=== PATIENT | female | born 1970 | race Caucasian/White ===

== ENCOUNTER 2016-08-24 22:34 | Observation (INO) | payer OTHER ==
[2016-08-24] MEDS ORDERED: ONDANSETRON 4 MG/2 ML VIAL IVP STA (22:55)
[2016-08-24] MEDS ORDERED: MORPHINE SULFATE 4 MG/ML SYRINGE IVP STA (23:12)
[2016-08-24] MEDS ORDERED: ASPIRIN 81 MG CHEW PO STA (23:13)
--- NOTE | 2016-08-24 23:15 | ED ---
Chest Pain HPI - General Chief Complaint: Chest Pain Stated Complaint: chest pain Time Seen by Provider: 08/24/16 22:50 Source: patient Mode of arrival: wheelchair Limitations: no limitations - History of Present Illness Initial Comments: The patient is a 46-year-old female who presents to ED with a chief complaint of left-sided chest pain. Patient states the pain has been present intermittently over the course the past three days. Patient states the pain is achy in nature. She states that it is associated with nausea and vomiting, particularly when she lays flat on her back. The patient notes that she does not have any shortness of breath associated with this pain. She does also notice pain in the lower cervical region of her neck. Patient does not have any neck stiffness. She denies any fevers or chills. Patient denies any history of cardiac disease. She denies any cardiac risk factors such as hypertension, hyperlipidemia, diabetes. The patient's notes abdominal pain in the epigastric region, though she states that she believes that this is secondary to the fact that she's had multiple episodes of emesis since her symptoms began. Patient denies any rash. The patient states that she is concerned that her pain may be groin worse. She notes that it does somewhat improve when she takes ibuprofen. She denies any history of PE or DVT. - Related Data Home Medications Medication Instructions Recorded Confirmed HYDROcodone/APAP 10-325MG [[place] 1 tab PO QID PRN 01/20/14 08/24/16 10] Divalproex ER [Depakote ER] 1,500 mg PO QAM 01/09/15 08/24/16 Pregabalin [Lyrica] 150 mg PO HS 01/09/15 08/24/16 Ibuprofen [Ibuprofen] 600 mg PO Q6H PRN 02/06/15 08/24/16 LORazepam [Ativan] 1 mg PO QID PRN 08/24/16 08/24/16 SUMAtriptan SUCCINATE [Imitrex] 50 mg PO BID PRN 08/24/16 08/24/16 Allergies Allergy/AdvReac Type Severity Reaction Status Date / Time cyclobenzaprine HCl Allergy Swelling Verified 08/24/16 23:18 [From Flexeril] dimenhydrinate Allergy Swelling Verified 08/24/16 23:18 diphenhydramine HCl Allergy Swelling Verified 08/24/16 23:18 [From Benadryl] doxylamine Allergy Swelling Verified 08/24/16 23:18 [From Unisom (doxylamine)] loratadine [From Claritin] Allergy Swelling Verified 08/24/16 23:18 Review of Systems ROS Statement: Those systems with pertinent positive or pertinent negative responses have been documented in the HPI. ROS Other: All systems not noted in ROS Statement are negative. Constitutional: Denies: fever, chills, weakness ENT: Denies: throat pain Respiratory: Denies: cough, dyspnea, wheezes, hemoptysis, stridor Cardiovascular: Reports: chest pain (left upper). Denies: palpitations, dyspnea on exertion Endocrine: Denies: fatigue Gastrointestinal: Reports: abdominal pain (epigastric), nausea, vomiting. Denies: diarrhea, constipation, hematemesis Genitourinary: Denies: urgency, dysuria, frequency, hematuria Skin: Denies: rash, lesions Neurological: Denies: headache, weakness, numbness Psychiatric: Reports: anxiety. Denies: depression EKG Findings - EKG Comments: EKG Findings:: EKG demonstrates NSR with a rate of 82. There are no concerning ST-T changes. The UT and QRS intervals are within normal limits. Past Medical History Past Medical History: Cancer, Musculoskeletal Disorder, Seizure Disorder Additional Past Medical History / Comment(s): LAST SEIZURE OVER 2 YRS AGO. Chronic back pain, hx cervical cancer. migraine headaches History of Any Multi-Drug Resistant Organisms: None Reported Past Surgical History: Section, Hysterectomy Additional Past Surgical History / Comment(s): PAIN CLINIC INJECTIONS Past Anesthesia/Blood Transfusion Reactions: No Reported Reaction Past Psychological History: Anxiety Smoking Status: Current every day smoker Past Alcohol Use History: Occasional Additional Past Alcohol Use History / Comment(s): STARTED SMOKING AT AGE 15 SMOKES LESS THAN 1/2PPD Past Drug Use History: None Reported - Past Family History Mother Family Medical History: No Reported History General Exam Limitations: no limitations General appearance: alert, anxious Head exam: Present: atraumatic, normocephalic Eye exam: Present: normal appearance, PERRL, EOMI ENT exam: Present: normal exam, mucous membranes dry Neck exam: Present: normal inspection, full ROM Respiratory exam: Present: normal lung sounds bilaterally, chest wall tenderness (mild tenderness over the left upper chest). Absent: respiratory distress, wheezes, rales, rhonchi Cardiovascular Exam: Present: regular rate, normal rhythm, normal heart sounds GI/Abdominal exam: Present: soft, tenderness (mild tenderness in the epigastric region). Absent: distended, guarding, rebound, rigid Extremities exam: Present: normal inspection, full ROM. Absent: tenderness Back exam: Present: normal inspection, full ROM. Absent: tenderness Neurological exam: Present: alert, oriented X3 Psychiatric exam: Present: normal affect, anxious Skin exam: Present: warm, dry, intact Course Vital Signs 08/24/16 08/24/16 08/25/16 22:37 23:52 00:49 Temperature 98.8 F 97.5 F L Pulse Rate 80 71 77 Respiratory 20 18 18 Rate Blood Pressure 101/71 108/64 102/69 O2 Sat by Pulse 98 100 100 Oximetry Chest Pain MDM - MDM Patient is a 46-year-old female who presents to the ED with a chief complaint of chest pain. Patient states that her chest pain has been present intermittently over the course the past three days. It is associated with sensation of nausea. Patient notes that she's never had any cardiac disease in the past. She has had no cardiac risk factors aside from cigarette use. No history of hypertension, hyperlipidemia or diabetes. Patient denies any history of COPD. Check d-dimer. Troponin. EKG demonstrates no evidence of acute ischemia. Chest x-ray. Provide patient with morphine for pain control. Check lipases well given epigastric pain. Zofran for nausea. 12:48 AM Patient states that her pain has resolved after receiving Morphine. She notes that now she has a headache and is feeling anxious. The patient and her family have been updated of overall findings. Question whether patient may have pleurisy vs underlying cardiac etiology. Will provide patient with Ativan to help patient relax. Spoke with Jyoti the PA for Dr. Balderas, who accepts placement of patient into Observation for further evaluation by Cardiology. Disposition Clinical Impression: Chest pain Disposition: ADMITTED IP TO THIS HOSP Condition: Good Decision to Admit Reason: Admit from EC Decision Date: 08/25/16 Decision Time: 00:57
[2016-08-24 23:23] LABS: Basophils % (A) 0 %; CH 32.3; Eosinophils # (A) 0.1 k/uL (0-0.7); Eosinophils % (A) 1 %; HCT 45.8 % (34.0-46.0); HDW 1.98; HGB 15.1 gm/dL (11.4-16.0); Luc # (Auto) 0.14; Luc % (Auto) 1; Lymphocytes % (A) 15 %; MCH 32.5 pg (25.0-35.0); MCV 98.4 fL (80.0-100.0); Mean Platelet Volume 7.9; Monocytes # (A) 0.4 k/uL (0-1.0); Monocytes % (A) 3 %; Neutrophils # (A) 10.3 k/uL (1.3-7.7); Neutrophils % (A) 79 %; RBC 4.65 m/uL (3.80-5.40); RDW 12.5 % (11.5-15.5)
[2016-08-24 23:33] LABS: ALT 25 U/L (9-52); AST 24 U/L (14-36); Alkaline Phosphatase 66 U/L (38-126); Anion Gap 10 mmol/L; Blood Urea Nitrogen 13 mg/dL (7-17); Calcium 9.5 mg/dL (8.4-10.2); Carbon Dioxide 29 mmol/L (22-30); Chloride 103 mmol/L (98-107); Glucose 76 mg/dL (74-99); Non-African American GFR(MDRD) >60 (>60 ml/min/1.73 sqM); Sodium 142 mmol/L (137-145); Total Bilirubin 0.5 mg/dL (0.2-1.3); Total Protein 7.5 g/dL (6.3-8.2)
[2016-08-24 23:57] LABS: Appearance,Urine Clear (Clear); Bilirubin,Urine Negative (Negative); Glucose,Urine (UA) Negative (Negative); Ketones,Urine Negative (Negative); Leukocyte Esterase,Urine Negative (Negative); Nitrite,Urine Negative (Negative); Protein,Urine Negative (Negative); Specific Gravity,Urine 1.007 (1.001-1.035); UA Billing (MACRO vs. MICRO) CHEM; Urobilinogen,Urine <2.0 mg/dL (<2.0)
--- NOTE | 2016-08-25 00:09 | XR ---
EXAM: XR Chest, 2 Views CLINICAL HISTORY: Reason: Pain TECHNIQUE: Frontal and lateral views of the chest. COMPARISON: 01/01/16 two-view chest. FINDINGS: Lungs: Unremarkable. No consolidation. Pleural space: Unremarkable. No pneumothorax. Heart: Unremarkable. No cardiomegaly. Mediastinum: Unremarkable. Bones/joints: Slight S-shaped curvature of the thoracic spine may in part be positional. IMPRESSION: No significant change. No new acute intrathoracic abnormality is seen.
[2016-08-25] MEDS ORDERED: LORazepam 2 MG/ML SYRINGE IV STA (00:30)
[2016-08-25] MEDS ORDERED: NALOXONE 0.4 MG/ML 1 ML VIAL IV PRN (00:58)
[2016-08-25] MEDS ORDERED: HYDROmorphone 1 MG/ML 1 ML SYRINGE IV PRN (00:58)
[2016-08-25] MEDS: PREGABALIN 75 MG CAP PO SCH ×2 (05:26→21:29)
[2016-08-25 06:00] LABS: Creatine Kinase 64 U/L (30-135)
[2016-08-25 06:13] LABS: Creatine Kinase MB 0.4 ng/mL (0.0-2.4); Troponin I <0.012 ng/mL (0.000-0.034)
[2016-08-25] MEDS: ACETAMINOPHEN TAB 325 MG TAB PO PRN ×2 (08:50→14:24)
--- NOTE | 2016-08-25 09:01 | P.CRDCN ---
History of Present Illness Consult date: 08/25/16 Chief complaint: Chest pain History of present illness: This is a pleasant 46-year-old female patient was no significant past medical history presented to the emergency room complaining of chest discomfort. The patient describes chest discomfort, in the mid of the chest, as a sharp kind of discomfort with some radiation to the neck. But the patient had a lot of arthritis issues in the neck and she received multiple injection as well. The discomfort in the chest was not associated with any shortness of breath, dizziness or lightheadedness, or syncope. It seems to be exertional and also positional. The EKG and cardiac enzymes came in to be unremarkable. I am going to proceed with a stress test and follow-up with the patient. Past Medical History Past Medical History: Cancer, Musculoskeletal Disorder, Seizure Disorder Additional Past Medical History / Comment(s): LAST SEIZURE OVER 5 YRS AGO. Chronic back pain, hx cervical cancer. migraine headaches History of Any Multi-Drug Resistant Organisms: None Reported Past Surgical History: Section, Hysterectomy Additional Past Surgical History / Comment(s): PAIN CLINIC INJECTIONS Past Anesthesia/Blood Transfusion Reactions: No Reported Reaction Past Psychological History: Anxiety Smoking Status: Current every day smoker Past Alcohol Use History: Occasional Additional Past Alcohol Use History / Comment(s): STARTED SMOKING AT AGE 15 SMOKES LESS THAN 1/2PPD Past Drug Use History: None Reported - Past Family History Mother Family Medical History: No Reported History Medications and Allergies Home Medications Medication Instructions Recorded Confirmed Type HYDROcodone/APAP 10-325MG [[place] 1 tab PO QID PRN 01/20/14 08/24/16 History 10] Divalproex ER [Depakote ER] 1,500 mg PO QAM 01/09/15 08/24/16 History Pregabalin [Lyrica] 150 mg PO HS 01/09/15 08/24/16 History Ibuprofen [Ibuprofen] 600 mg PO Q6H PRN 02/06/15 08/24/16 History LORazepam [Ativan] 1 mg PO QID PRN 08/24/16 08/24/16 History SUMAtriptan SUCCINATE [Imitrex] 50 mg PO BID PRN 08/24/16 08/24/16 History Allergies Allergy/AdvReac Type Severity Reaction Status Date / Time cyclobenzaprine HCl Allergy Swelling Verified 08/24/16 23:18 [From Flexeril] dimenhydrinate Allergy Swelling Verified 08/24/16 23:18 diphenhydramine HCl Allergy Swelling Verified 08/24/16 23:18 [From Benadryl] doxylamine Allergy Swelling Verified 08/24/16 23:18 [From Unisom (doxylamine)] loratadine [From Claritin] Allergy Swelling Verified 08/24/16 23:18 Physical Exam Vitals: Vital Signs Temp Pulse Pulse Resp BP BP Pulse Ox 08/25/16 08:00 98.1 F 69 18 79/52 98 08/25/16 06:00 67 16 90/55 97 08/25/16 04:00 98.5 F 92 16 78/56 67 L 08/25/16 02:59 67 16 08/25/16 02:30 97.8 F 69 16 85/54 100 08/25/16 02:07 97.8 F 72 18 98/72 98 Intake and Output 08/24/16 08/25/16 08/25/16 22:59 06:59 14:59 Other: Voiding Method Toilet # Voids 2 Weight 54.431 kg - Constitutional General appearance: no acute distress - Respiratory Respiratory: bilateral: CTA - Cardiovascular Rhythm: regular Results 08/24/16 22:53 08/24/16 22:53 Cardiac Enzymes 08/25/16 Range/Units 05:20 CK-MB (CK-2) 0.4 (0.0-2.4) ng/mL Troponin I <0.012 (0.000-0.034) ng/mL Current Medications Generic Name Dose Route Start Last Admin Trade Name Freq PRN Reason Stop Dose Admin Acetaminophen 650 mg 08/25/16 02:28 08/25/16 08:50 Tylenol Tab PO 650 mg Q4HR PRN Administration Fever and/ or mild Pain Hydromorphone HCl 0.5 mg 08/25/16 00:58 Dilaudid IV Q3HR PRN Severe Pain Naloxone HCl 0.2 mg 08/25/16 00:58 Narcan IV Q2M PRN Opioid Reversal Ondansetron HCl 4 mg 08/25/16 00:58 Zofran IVP Q8HR PRN Nausea And Vomiting Pregabalin 150 mg 08/25/16 03:00 08/25/16 05:26 Lyrica PO Not Given HS LORRAINE Intake and Output 08/24/16 08/25/16 08/25/16 22:59 06:59 14:59 Other: Voiding Method Toilet # Voids 2 Weight 54.431 kg Assessment and Plan Plan: Assessment Atypical chest pain Plan The patient was ruled out for acute coronary event I will schedule the patient to undergo stress echo.
[2016-08-25] MEDS: SODIUM CHLORIDE 0.9% 1,000 ML IV SCH (11:00)
[2016-08-25] MEDS: HYDROcodone/APAP 10-325MG 1 EACH TAB PO PRN ×2 (11:25→21:27)
[2016-08-25] MEDS: SODIUM CHLORIDE 0.9% 1,000 ML IV ONE (11:27)
[2016-08-25] MEDS: DIVALPROEX ER 500 MG TAB.ER.24H PO SCH (11:28)
[2016-08-25 12:01] LABS: Anion Gap 5 mmol/L; Blood Urea Nitrogen 16 mg/dL (7-17); Calcium 8.4 mg/dL (8.4-10.2); Carbon Dioxide 29 mmol/L (22-30); Chloride 107 mmol/L (98-107); Glucose 77 mg/dL (74-99); Non-African American GFR(MDRD) >60 (>60 ml/min/1.73 sqM); Potassium 4.1 mmol/L (3.5-5.1); Sodium 141 mmol/L (137-145)
[2016-08-25 12:02] LABS: Basophils % (A) 0 %; CHCM 31.7; Eosinophils # (A) 0.1 k/uL (0-0.7); Eosinophils % (A) 2 %; HCT 39.6 % (34.0-46.0); HDW 1.95; HGB 12.8 gm/dL (11.4-16.0); Luc # (Auto) 0.07; Luc % (Auto) 2; Lymphocytes # (A) 0.8 k/uL (1.0-4.8); Lymphocytes % (A) 19 %; MCH 32.9 pg (25.0-35.0); MCHC 32.4 g/dL (31.0-37.0); MCV 101.3 fL (80.0-100.0); Mean Platelet Volume 7.8; Monocytes # (A) 0.2 k/uL (0-1.0); Monocytes % (A) 4 %; Neutrophils % (A) 74 %; RBC 3.91 m/uL (3.80-5.40); RDW 12.7 % (11.5-15.5); WBC 4.1 k/uL (3.8-10.6); WBC (Perox) 4.41
[2016-08-25 12:29] LABS: Creatine Kinase 62 U/L (30-135)
--- NOTE | 2016-08-25 12:29 | ECHOF ---
Referral Reason: MEASUREMENTS -------- HEIGHT: 165.1 cm WEIGHT: 54.4 kg BP: IVSd: 0.7 cm (0.6 - 1.1) LVIDd: 4.1 cm (3.9 - 5.3) LVPWd: 0.8 cm (0.6 - 1.1) IVSs: 1.0 cm LVIDs: 2.6 cm LVPWs: 1.1 cm LA Diam: 2.1 cm (2.7 - 3.8) Ao Diam: 2.9 cm (2.0 - 3.7) AV Cusp: 1.7 cm (1.5 - 2.6) LA Diam: 3.1 cm (2.7 - 3.8) MV EXCURSION: 10.933 mm (> 18.000) MV EF SLOPE: 82 mm/s (70 - 150) EPSS: 0.2 cm MV E Juan Luis: 0.79 m/s MV DecT: 255 ms MV A Juan Luis: 0.50 m/s MV E/A Ratio: 1.60 FINDINGS -------- Sinus rhythm. This was a technically good study. Pt. not compliant. LV size, wall thickness and systolic function are normal, with an EF greater than 55%. The right ventricle is normal in size. The left atrial size is normal. The right atrial size is normal. The aortic valve is trileaflet, and appears structurally normal. No aortic stenosis or regurgitation. Mild mitral regurgitation is present. No regurgitation noted There is no evidence of pulmonary hypertension. The aortic root size is normal. There is no pericardial effusion. CONCLUSIONS -------- 1. Pt. not compliant. 2. LV size, wall thickness and systolic function are normal, with an EF greater than 55%. 3. Mild mitral regurgitation is present. 4. No regurgitation noted 5. There is no evidence of pulmonary hypertension. 6. There is no pericardial effusion. ELECT[employer]LLY OPERATOR: Elle Eubanks RDCS
[2016-08-25 12:41] LABS: Creatine Kinase MB 0.4 ng/mL (0.0-2.4); Troponin I <0.012 ng/mL (0.000-0.034)
[2016-08-25] MEDS: SUMAtriptan SUCCINATE 50 MG TAB PO PRN (13:17)
[2016-08-25] MEDS: ONDANSETRON 4 MG/2 ML VIAL IVP PRN (14:18)
[2016-08-25] MEDS ORDERED: METOCLOPRAMIDE 5 MG/ML 2 ML VIAL IVP PRN (15:56)
[2016-08-25] MEDS ORDERED: methylPREDNISolone SOD SUCCI 125 MG/2 ML VIAL IV STA (15:56)
[2016-08-25] MEDS ORDERED: methylPREDNISolone SOD SUCCI 125 MG/2 ML VIAL IV SCH (16:00)
--- NOTE | 2016-08-25 16:03 | P.HPIM ---
History of Present Illness H&P Date: 08/25/16 46-year-old female with history of seizure disorder comes to the hospital with generalized weakness for the last 5 days. Patient states that she was in good health prior to that states to have intermittent episodes of headache and left- sided which is common with her chronic migraines. Thereafter with the last few days patient is noted to have a chest pain that has been persistent on the left side not associated with exertion no relieving or aggravating factors. However over the last day or 2 patient has noted that the pain is reproducible with palpation. Patient comes in the hospital was admitted to rule out ACS S patient is a smoker and has other risk factors. Patient has also been complaining of associated nausea vomiting with it. EKG did not reveal ST-T wave changes cardiac enzymes 3 have been negative Patient today was taken to the stress test lab however was too nauseous and could not undergo the test. Patient's blood pressure was suboptimal on further questioning patient denies ever being told to have low blood pressures in the past. Denies any thyroid issues or other glandular problems. Review of Systems All systems: negative (In HPI) Past Medical History Past Medical History: Cancer, Musculoskeletal Disorder, Seizure Disorder Additional Past Medical History / Comment(s): LAST SEIZURE OVER 5 YRS AGO. Chronic back pain, hx cervical cancer. migraine headaches History of Any Multi-Drug Resistant Organisms: None Reported Past Surgical History: Section, Hysterectomy Additional Past Surgical History / Comment(s): PAIN CLINIC INJECTIONS Past Anesthesia/Blood Transfusion Reactions: No Reported Reaction Past Psychological History: Anxiety Smoking Status: Current every day smoker Past Alcohol Use History: Occasional Additional Past Alcohol Use History / Comment(s): STARTED SMOKING AT AGE 15 SMOKES LESS THAN 1/2PPD Past Drug Use History: None Reported - Past Family History Mother Family Medical History: No Reported History Medications and Allergies Home Medications Medication Instructions Recorded Confirmed Type HYDROcodone/APAP 10-325MG [[place] 1 tab PO QID PRN 01/20/14 08/24/16 History 10] Divalproex ER [Depakote ER] 1,500 mg PO QAM 01/09/15 08/24/16 History Pregabalin [Lyrica] 150 mg PO HS 01/09/15 08/24/16 History Ibuprofen [Ibuprofen] 600 mg PO Q6H PRN 02/06/15 08/24/16 History LORazepam [Ativan] 1 mg PO QID PRN 08/24/16 08/24/16 History SUMAtriptan SUCCINATE [Imitrex] 50 mg PO BID PRN 08/24/16 08/24/16 History Allergies Allergy/AdvReac Type Severity Reaction Status Date / Time cyclobenzaprine HCl Allergy Swelling Verified 08/24/16 23:18 [From Flexeril] dimenhydrinate Allergy Swelling Verified 08/24/16 23:18 diphenhydramine HCl Allergy Swelling Verified 08/24/16 23:18 [From Benadryl] doxylamine Allergy Swelling Verified 08/24/16 23:18 [From Unisom (doxylamine)] loratadine [From Claritin] Allergy Swelling Verified 08/24/16 23:18 Physical Exam Vitals: Vital Signs Temp Pulse Pulse Resp BP BP Pulse Ox 08/25/16 13:42 86/55 08/25/16 12:00 97.7 F 66 14 106/73 100 08/25/16 08:00 98.1 F 69 18 79/52 98 08/25/16 06:00 67 16 90/55 97 08/25/16 04:00 98.5 F 92 16 78/56 67 L 08/25/16 02:59 67 16 08/25/16 02:30 97.8 F 69 16 85/54 100 08/25/16 02:07 97.8 F 72 18 98/72 98 Intake and Output 08/25/16 08/25/16 08/25/16 06:59 14:59 22:59 Intake Total 420 Balance 420 Intake: Oral 420 Other: Voiding Method Toilet Toilet # Voids 2 2 Weight 54.431 kg Physical exam Gen. appearance oriented 3 in no distress Neck is supple no JVD Lungs good air entry clear to auscultation no rhonchi or wheezing Heart S1-S2 heard regular rate and rhythm no murmurs appreciated Abdomen is soft nontender no organomegaly bowel sounds are intact Neurologically cranial nerves II-12 grossly intact no focal motor or sensory deficits noted Skin no abnormalities appreciated Results CBC & Chem 7: 08/25/16 11:24 08/25/16 11:24 Labs: Abnormal Lab Results - Last 24 Hours (Table) 08/25/16 Range/Units 11:24 MCV 101.3 H (80.0-100.0) fL Lymphocytes # 0.8 L (1.0-4.8) k/uL Thrombosis Risk Factor Assmnt - Choose All That Apply Each Factor Represents 1 point: Age 41-60 years Thrombosis Risk Factor Assessment Total Risk Factor Score: 1 Thrombosis Risk Factor Assessment Level: Low Risk Assessment and Plan Plan: 1 atypical chest pain appears to be likely musculoskeletal in nature #2 hypotension asymptomatic rule out relative adrenal insufficiency #3 history of seizure disorder #4 history of chronic migraines #5 chronic musculoskeletal lower back pains #6 intractable nausea vomiting unknown underlying etiology. 5 A random cortisol level will be obtained we'll give the patient 125 mg of IV Solu-Medrol to help with the headache. IV ibuprofen will also be given both medication will help in treating musculoskeletal type of chest pain Antiemetic medications. Patient does not want any narcotics. We'll also obtain a drug screen to rule out if this is a withdrawal of some sort The plan was discussed with the patient cardiology consultation was reviewed echocardiogram was also reviewed the patient continued to have chest pain and appears to be reproducible. Patient was not able to tolerate stress echo. We' ll defer to the timing of further testing per cardiology
[2016-08-25] MEDS ORDERED: IBUPROFEN IV 800 MG in SODIUM CHLORIDE 0.9% 250 ML IV SCH (18:00)
[2016-08-25] MEDS ORDERED: LORazepam 1 MG TAB PO STA (20:28)
[2016-08-25] MEDS ORDERED: LORazepam 0.5 MG TAB PO PRN (20:28)
[2016-08-25] MEDS ORDERED: NON-FORMULARY DRUG (Pregabalin [Lyrica] 150 MG) PO SCH (21:00)
[2016-08-26] MEDS: ACETAMINOPHEN TAB 325 MG TAB PO PRN ×3 (01:15→11:35)
[2016-08-26] MEDS: HYDROcodone/APAP 10-325MG 1 EACH TAB PO PRN ×2 (02:49→09:58)
[2016-08-26] MEDS: ONDANSETRON 4 MG/2 ML VIAL IVP PRN (02:50)
--- NOTE | 2016-08-26 08:53 | P.PN ---
Progress Note - Text This is a pleasant 46-year-old female patient was no significant past medical history presented to the emergency room complaining of chest discomfort. The patient describes chest discomfort, in the mid of the chest, as a sharp kind of discomfort with some radiation to the neck. But the patient had a lot of arthritis issues in the neck and she received multiple injection as well. The discomfort in the chest was not associated with any shortness of breath, dizziness or lightheadedness, or syncope. It seems to be exertional and also positional. The EKG and cardiac enzymes came in to be unremarkable. A stress test was ordered but the patient was experiencing severe headache and it was canceled. On follow-up with her today, chest discomfort has improved and she still experiencing headache and she was to eat. At this point the patient can be discharged home and I will do a stress test on her as an outpatient.
[2016-08-26] MEDS: DIVALPROEX ER 500 MG TAB.ER.24H PO SCH (09:58)
[2016-08-26] MEDS: SODIUM CHLORIDE 0.9% 1,000 ML IV SCH (11:37)
[2016-08-26 11:48] VITALS: BP 87/58; PULSE 71; RESP 18; TEMP 98.4
[2016-08-26] MEDS: SUMAtriptan SUCCINATE 50 MG TAB PO PRN (12:15)
[2016-08-26] MEDS ORDERED: SODIUM CHLORIDE 0.9% 1,000 ML IV ONE (13:13)
[2016-08-26] MEDS: SODIUM CHLORIDE 0.9% 1,000 ML IV ONE (13:16)
--- NOTE | 2016-08-26 13:36 | P.DS ---
Providers Date of admission: 08/25/16 00:58 Attending physician: Tram Jorge Consults: 08/25/16 01:00 Consult Physician Routine Consulting Provider: Bill Piña Consult Reason/Comments: Chest Pain Do you want consulting provider notified?: Yes Primary care physician: Ramón Calloway [facility] Course: 46-year-old female with history of seizure disorder comes to the hospital with generalized weakness for the last 5 days. Patient states that she was in good health prior to that states to have intermittent episodes of headache and left- sided which is common with her chronic migraines. Thereafter with the last few days patient is noted to have a chest pain that has been persistent on the left side not associated with exertion no relieving or aggravating factors. However over the last day or 2 patient has noted that the pain is reproducible with palpation. Patient comes in the hospital was admitted to rule out ACS S patient is a smoker and has other risk factors. Patient has also been complaining of associated nausea vomiting with it. EKG did not reveal ST-T wave changes cardiac enzymes 3 have been negative Patient today was taken to the stress test lab however was too nauseous and could not undergo the test. Patient's blood pressure was suboptimal on further questioning patient denies ever being told to have low blood pressures in the past. Denies any thyroid issues or other glandular problems. 08/26/2016 Patient states that the her chest pain is improved continues to persist and reproducible No new overnight events Physical exam Gen. appearance oriented 3 in no distress Neck is supple no JVD Lungs good air entry clear to auscultation no rhonchi or wheezing Heart S1-S2 heard regular rate and rhythm no murmurs appreciated Abdomen is soft nontender no organomegaly bowel sounds are intact Neurologically cranial nerves II-12 grossly intact no focal motor or sensory deficits noted Skin no abnormalities appreciated Assessment and Plan Plan: 1 atypical chest pain appears to be likely musculoskeletal in nature. All of outpatient for possibility of a stress test. Patient underwent echocardiogram which did not reveal any wall motion abnormalities. #2 hypotension asymptomatic random cortisol level was within normal limits #3 history of seizure disorder #4 history of chronic migraines with acute status migrainosus. Patient will be discharged on a burst of steroids after long discussion patient will be started on Topamax 25 by mouth twice a day Patient is to follow-up with Dr. Calloway for further tapering dosing. #5 chronic musculoskeletal lower back pains #6 intractable nausea vomiting sec to migraines Patient Condition at Discharge: Good Plan - Discharge Summary New Discharge Prescriptions: SUMAtriptan SUCCINATE [Imitrex] 50 mg PO BID PRN #30 tab PRN Reason: Migraine Headache Topiramate [Topamax] 25 mg PO BID #40 tablet predniSONE 50 mg PO DAILY #5 tab Discharge Medication List HYDROcodone/APAP 10-325MG [[place] 10-325] 1 tab PO QID PRN 01/20/14 [History] Divalproex ER [Depakote ER] 1,500 mg PO QAM 01/09/15 [History] Pregabalin [Lyrica] 150 mg PO HS 01/09/15 [History] Ibuprofen 600 mg PO Q6H PRN 02/06/15 [History] LORazepam [Ativan] 1 mg PO QID PRN 08/24/16 [History] SUMAtriptan SUCCINATE [Imitrex] 50 mg PO BID PRN #30 tab 08/26/16 [Rx] Topiramate [Topamax] 25 mg PO BID #40 tablet 08/26/16 [Rx] predniSONE 50 mg PO DAILY #5 tab 08/26/16 [Rx] Follow up Appointment(s)/Referral(s): Ramón Calloway MD [Primary Care Provider] - 1-2 days Dorian Isaacs MD [STAFF PHYSICIAN] - 1 Week Discharge Disposition: HOME SELF-CARE
== END 2016-08-26 15:44 | disposition home or self-care (01) ==
LOC: EC 22:34 → 3OBS 08-25 00:58
PROVIDERS: ADMIT Internal Medicine; ATTEND Internal Medicine
DX: R07.89 Other chest pain (principal); I95.9 Hypotension, unspecified; G40.909 Epilepsy, unspecified, not intractable, without status epilepticus; G43.901 Migraine, unspecified, not intractable, with status migrainosus; M54.5 Low back pain; R53.1 Weakness; R10.13 Epigastric pain; Z79.899 Other long term (current) drug therapy; Z88.8 Allergy status to other drugs, medicaments and biological substances; Z85.41 Personal history of malignant neoplasm of cervix uteri; G89.29 Other chronic pain; F41.9 Anxiety disorder, unspecified; F17.210 Nicotine dependence, cigarettes, uncomplicated; M19.90 Unspecified osteoarthritis, unspecified site
CPT/HCPCS: 96375 ×3; 96361 ×2; 96365; 99285; 36415; 94760; 93005; 93306; 85379; 80164; 83880; 80053; 80048; 84443 ×2; 82533; 82550; 82553; 83690; 83735; 84484 ×2; 85025 ×2; 81003; 71020; G0378 ×2; J2060; J2270; J2930; J2405 ×3; J1741

== ENCOUNTER 2016-10-06 12:17 | Observation (INO) | payer OTHER ==
[2016-10-06] MEDS ORDERED: KETOROLAC 30 MG/ML 1 ML VIAL IVP STA ×3 (12:58→14:25)
[2016-10-06] MEDS ORDERED: LORazepam 2 MG/ML SYRINGE IV STA (12:58)
[2016-10-06 13:14] LABS: Basophils % (A) 1 %; CH 33.1; CHCM 34.2; Eosinophils # (A) 0.2 k/uL (0-0.7); Eosinophils % (A) 3 %; HCT 39.9 % (34.0-46.0); HDW 2.14; HGB 13.7 gm/dL (11.4-16.0); Luc % (Auto) 4; Lymphocytes # (A) 3.1 k/uL (1.0-4.8); Lymphocytes % (A) 45 %; MCH 33.4 pg (25.0-35.0); MCHC 34.3 g/dL (31.0-37.0); MCV 97.3 fL (80.0-100.0); Mean Platelet Volume 7.8; Monocytes # (A) 0.5 k/uL (0-1.0); Monocytes % (A) 7 %; Neutrophils # (A) 2.9 k/uL (1.3-7.7); Neutrophils % (A) 42 %; RDW 12.6 % (11.5-15.5); WBC (Perox) 7.21
[2016-10-06 13:20] LABS: Partial Thromboplastin Time 25.3 sec (22.0-30.0); Prothrombin Time 10.5 sec (9.0-12.0)
[2016-10-06 13:21] LABS: ALT 23 U/L (9-52); AST 26 U/L (14-36); Alkaline Phosphatase 68 U/L (38-126); Anion Gap 9 mmol/L; Blood Urea Nitrogen 12 mg/dL (7-17); Calcium 9.1 mg/dL (8.4-10.2); Carbon Dioxide 23 mmol/L (22-30); Chloride 106 mmol/L (98-107); Glucose 85 mg/dL (74-99); Non-African American GFR(MDRD) >60 (>60 ml/min/1.73 sqM); Potassium 4.3 mmol/L (3.5-5.1); Sodium 138 mmol/L (137-145); Total Bilirubin 0.6 mg/dL (0.2-1.3); Total Protein 6.9 g/dL (6.3-8.2)
[2016-10-06 13:39] LABS: Creatine Kinase 173 U/L (30-135)
[2016-10-06 13:50] LABS: Creatine Kinase MB 0.9 ng/mL (0.0-2.4); Troponin I <0.012 ng/mL (0.000-0.034)
--- NOTE | 2016-10-06 14:16 | XR ---
EXAMINATION TYPE: XR chest 2V DATE OF EXAM: 10/06/2016 COMPARISON: 08/24/2016 INDICATION: Chest pain TECHNIQUE: Frontal and lateral views of the chest are obtained. FINDINGS: The heart size is normal. The pulmonary vasculature is normal. The lungs are clear. There is hyperinflation compatible with COPD. IMPRESSION: 1. COPD. 2. No acute pulmonary process.
--- NOTE | 2016-10-06 14:17 | XR ---
EXAMINATION TYPE: XR lumbosacral spine min 4V DATE OF EXAM: 10/06/2016 COMPARISON: 09/01/2009 HISTORY: Pain TECHNIQUE: 5 view lumbar spine FINDINGS: Disc heights are preserved. Vertebral body heights are preserved. Alignment is normal. No s pondylolytic defects are evident. No spondylolisthesis is evident. IMPRESSION: 1. Unremarkable lumbar spine.
[2016-10-06] MEDS: methylPREDNISolone SOD SUCCI 125 MG/2 ML VIAL IV STA ×2 (14:27→14:30)
--- NOTE | 2016-10-06 14:42 | ED ---
Chest Pain HPI - General Chief Complaint: Chest Pain Stated Complaint: Chest Pain Time Seen by Provider: 10/06/16 12:42 Source: patient, RN notes reviewed Mode of arrival: wheelchair Limitations: no limitations - History of Present Illness Initial Comments: Is a 46-year-old female history of chronic pain who states that yesterday she was moving a playpen by herself and after that she sustained pain to the left side of her chest into the right low back radiate down to her right buttock. She states the pain is 100/10 in severity sharp in nature and increases with movement. Of note she does have a recent admission for evaluation of chest pain apparently no findings were obtained that time. States pain is sharp in nature she has any fevers chills nausea vomiting sweats cough or phlegm production MD Complaint: chest pain - Related Data Home Medications Medication Instructions Recorded Confirmed HYDROcodone/APAP 10-325MG [[place] 1 tab PO QID PRN 01/20/14 10/06/16 10-325] Divalproex ER [Depakote ER] 1,500 mg PO QAM 01/09/15 10/06/16 Pregabalin [Lyrica] 150 mg PO HS 01/09/15 10/06/16 Ibuprofen 600 mg PO Q6H PRN 02/06/15 10/06/16 LORazepam [Ativan] 1 mg PO QID PRN 08/24/16 10/06/16 Ketorolac [Toradol] 10 mg PO Q6HR PRN 10/06/16 10/06/16 Previous Rx's Medication Instructions Recorded Ondansetron [Zofran] 4 mg PO Q8HR PRN #30 tab 08/26/16 SUMAtriptan SUCCINATE [Imitrex] 50 mg PO BID PRN #30 tab 08/26/16 Topiramate [Topamax] 25 mg PO BID #40 tablet 08/26/16 Allergies Allergy/AdvReac Type Severity Reaction Status Date / Time cyclobenzaprine HCl Allergy Swelling Verified 10/06/16 13:23 [From Flexeril] dimenhydrinate Allergy Swelling Verified 10/06/16 13:23 diphenhydramine HCl Allergy Swelling Verified 10/06/16 13:23 [From Benadryl] doxylamine Allergy Swelling Verified 10/06/16 13:23 [From Unisom (doxylamine)] loratadine [From Claritin] Allergy Swelling Verified 10/06/16 13:23 Review of Systems ROS Statement: Those systems with pertinent positive or pertinent negative responses have been documented in the HPI. ROS Other: All systems not noted in ROS Statement are negative. EKG Findings - EKG Results: EKG: interpreted by KRISTIAN, sinus rhythm (EKG shows a sinus rhythm of 105 KS 138 QRS of 62 QT/QTC of 360/475 vessel of atrial enlargement no acute ST-T wave changes are seen.) Past Medical History Past Medical History: Cancer, Musculoskeletal Disorder, Seizure Disorder Additional Past Medical History / Comment(s): LAST SEIZURE OVER 5 YRS AGO. Chronic back pain, hx cervical cancer. migraine headaches History of Any Multi-Drug Resistant Organisms: None Reported Past Surgical History: Section, Hysterectomy Additional Past Surgical History / Comment(s): PAIN CLINIC INJECTIONS Past Anesthesia/Blood Transfusion Reactions: No Reported Reaction Past Psychological History: Anxiety Smoking Status: Current every day smoker Past Alcohol Use History: Occasional Additional Past Alcohol Use History / Comment(s): STARTED SMOKING AT AGE 15 SMOKES LESS THAN 1/2PPD Past Drug Use History: None Reported - Past Family History Mother Family Medical History: No Reported History General Exam - General Exam Comments Initial Comments: This is a well developed well-nourished awake alert oriented 3 female she is very anxious Limitations: no limitations General appearance: alert, anxious Head exam: Present: atraumatic, normocephalic, normal inspection Eye exam: Present: normal appearance, PERRL, EOMI. Absent: scleral icterus, conjunctival injection, periorbital swelling ENT exam: Present: normal exam, mucous membranes moist Neck exam: Present: normal inspection. Absent: tenderness, meningismus, lymphadenopathy Respiratory exam: Present: normal lung sounds bilaterally, chest wall tenderness (Reproducible tenderness palpation over the left costochondral margin ). Absent: respiratory distress, wheezes, rales, rhonchi, stridor Cardiovascular Exam: Present: regular rate, normal rhythm, normal heart sounds. Absent: systolic murmur, diastolic murmur, rubs, gallop, clicks GI/Abdominal exam: Present: soft, normal bowel sounds. Absent: distended, tenderness, guarding, rebound, rigid Extremities exam: Present: normal inspection, full ROM, normal capillary refill. Absent: tenderness, pedal edema, joint swelling, calf tenderness Back exam: Present: normal inspection, tenderness (Tenderness palpation of the left paraspinous muscles the lumbar sacral region patient will not let me examine her fully due to the amount patient she states she is in.) Neurological exam: Present: alert, oriented X3, CN II-XII intact Psychiatric exam: Present: anxious Skin exam: Present: warm, dry, intact, normal color. Absent: rash Course Vital Signs 10/06/16 10/06/16 10/06/16 12:20 13:23 14:33 Temperature 97.0 F L Pulse Rate 103 H 83 89 Respiratory 24 22 18 Rate Blood Pressure 110/82 123/75 117/55 O2 Sat by Pulse 100 98 98 Oximetry 10/06/16 15:00 Temperature Pulse Rate 94 Respiratory 18 Rate Blood Pressure 103/60 O2 Sat by Pulse 98 Oximetry - Reevaluation(s) Reevaluation #1: 10/06/16 14:42 In addition to moving the playpen the patient also states that her father was diagnosed with a brain tumor recently. Reevaluation #2: 10/06/16 16:18 The patient claims that she is getting relief from any of the medications were given thus far. I did discuss the findings with Dr. Mederos who does admit that her immunizations the patient will be admitted with orthopedic consultation Chest Pain MDM - MDM The patient is reproducible chest pain also evidence of sciatica. The pain is intractable she states she's had no relief from a medication rendered thus far. Be admitted with orthopedic consultation Disposition Clinical Impression: Intractable pain, Costalchondritis, Chest wall syndrome, Sciatica Disposition: ADMITTED IP TO THIS HOSP Condition: Stable Referrals: Ramón Calloway MD [Primary Care Provider] - 1-2 days
[2016-10-06] MEDS ORDERED: HYDROmorphone 1 MG/ML 1 ML SYRINGE IVP STA (14:46)
[2016-10-06] MEDS ORDERED: MORPHINE SULFATE 4 MG/ML SYRINGE IVP STA (15:44)
[2016-10-06] MEDS ORDERED: ONDANSETRON 4 MG/2 ML VIAL IVP STA (16:00)
[2016-10-06 16:07] LABS: Appearance,Urine Clear (Clear); Bilirubin,Urine Negative (Negative); Glucose,Urine (UA) Negative (Negative); Ketones,Urine Negative (Negative); Leukocyte Esterase,Urine Negative (Negative); Nitrite,Urine Negative (Negative); Protein,Urine Negative (Negative); Specific Gravity,Urine 1.006 (1.001-1.035); UA Billing (MACRO vs. MICRO) CHEM; Urobilinogen,Urine <2.0 mg/dL (<2.0)
[2016-10-06] MEDS ORDERED: NALOXONE 0.4 MG/ML 1 ML VIAL IV PRN (16:20)
[2016-10-06] MEDS ORDERED: ONDANSETRON 4 MG/2 ML VIAL IVP PRN (16:20)
[2016-10-06] MEDS ORDERED: LORazepam 1 MG TAB PO PRN (16:23)
[2016-10-06] MEDS: SODIUM CHLORIDE 0.9% 1,000 ML IV SCH (18:22)
[2016-10-06] MEDS: HYDROmorphone 1 MG/ML 1 ML SYRINGE IV PRN ×2 (19:28→23:23)
[2016-10-06] MEDS: TOPIRAMATE 25 MG TAB PO SCH (23:25)
[2016-10-06] MEDS: PREGABALIN 75 MG CAP PO SCH (23:29)
[2016-10-07 00:28] LABS: Glucose,Whole Blood 96 mg/dL (75-99)
[2016-10-07] MEDS ORDERED: SODIUM CHLORIDE 0.9% 250 ML IV ONE (04:04)
[2016-10-07] MEDS: ENOXAPARIN 40 MG/0.4 ML SYRINGE SQ SCH ×3 (04:36→07:57)
[2016-10-07] MEDS: SODIUM CHLORIDE 0.9% 1,000 ML IV SCH ×2 (05:29→22:22)
--- NOTE | 2016-10-07 06:01 | HP ---
DATE OF ADMISSION: 10/06/2016 PRESENTING COMPLAINT: Back pain. HISTORY OF PRESENTING COMPLAINT: This is a 46-year-old patient of Dr. Calloway who has chronic back pain and follows with Dr. Sparks, Dr. Bailey and was also seen by surgeons, but she does not want anything to be done further. Yesterday, she was pulling up play pen and she says she lunged forwarded and she developed more pain in the lumbar area of the back on the right side going down to the buttock area. Patient was having trouble walking since then stating she is having trouble making some urine. When they called me from the ER, I told them to get a hold of Dr. Olmstead from [facility] for consultation given her presentation. When I came into the room, the patient was sitting at the edge of the bed was able to actually get herself into the bed though slowly and when I wanted to examine her she said she could not move her legs, though I had seen her actually do the same. REVIEW OF SYSTEMS: CONSTITUTIONAL: None. HEENT: None. RESPIRATORY: None. CARDIOVASCULAR: None. GASTROINTESTINAL: None. GENITOURINARY: As above. MUSCULOSKELETAL: As above. DERMATOLOGICAL: None. HEMATOLOGIC: None. LYMPHATIC: None. PSYCHIATRY: Very anxious. NEUROLOGICAL: As above. Past history of chronic low back pain, seizures, last attack over 2 years ago, some migraine headache, cervical cancer. PAST SURGICAL HISTORY: Pain clinic injection, . SOCIAL HISTORY: Lives with her grandfather. Smokes about a pack and a half a day for the last 30 years. No alcohol. FAMILY HISTORY: Brain tumor. HOME MEDICATIONS: 1. Lyrica 150 mg q.h.s. 2. Ativan 1 mg p.o. q.i.d. p.r.n. 3. Toradol 10 mg q.6 p.r.n. 4. Ibuprofen 600 mg q.6 p.r.n. 5. Alpine 10 one tablet q.i.d. 6. Depakote ER 1500 mg p.o. q.a.m. 7. Topamax 25 mg b.i.d. 8. Imitrex 50 mg b.i.d. p.r.n. Allergies to FLEXERIL, BENADRYL, DOXYLAMINE, CLARITIN, SOLU-MEDROL. On examination, temperature 96, pulse 75, respiration 20, blood pressure 105/60, pulse ox 100% on room air. GENERAL APPEARANCE: Thin build, BMI of 19.4, lying in bed, uncomfortable. EYES: Pupil equal. Conjunctivae normal. HENT: Oral cavity normal. NECK: JVD not raised. Mass not palpable. RESPIRATORY: Effort normal. LUNGS: Slightly decreased breath sounds. CARDIOVASCULAR: First and second sounds normal. No edema. ABDOMEN: Soft, nontender. Liver and spleen not palpable. LYMPHATIC: No lymph node palpable in neck or axillae. PSYCHIATRY: Alert and oriented x3. Mood is very anxious appearing. NEUROLOGICAL: Not really able to examine the patient as she does not want me to touch her in the lower back, she says it really hurts. She just showed me where the pain was. Limited range of motion around the right hip, but like I said early cannot examine her. Reflexes a bit increased on the left side, left leg. Sensation grossly preserved. INVESTIGATIONS: White count 7, hemoglobin was 13.7. Potassium 4.3. Lumbar spine x-ray is unremarkable. ASSESSMENT: 1. Acute on chronic low back pain in the patient who has had multiple pain procedures. Follows with pain specialist Dr. Bailey. This could be additional muscle spasm and some radiculopathy. I am not sure what to make of the right leg as the patient really would not let me examine her. She was rather melodramatic as witnessed by me and the nurse. 2. Gastroesophageal reflux disease. 3. Seizure disorder. 4. Chronic nicotine dependence in a patient smoking. 5. Anxiety, not otherwise specified. PLAN: Dr. Olmstead was already consulted from the ER. At this point, will give her ice pack, give her Dilaudid and add Baclofen. We will also do a bladder scan to check ( ) residual. Care was discussed with the patient also consulted Dr. Bailey from pain management.
[2016-10-07] MEDS: TOPIRAMATE 25 MG TAB PO SCH ×2 (07:56→20:56)
[2016-10-07] MEDS: HYDROcodone/APAP 10-325MG 1 EACH TAB PO PRN ×3 (08:22→22:02)
[2016-10-07] MEDS ORDERED: DIVALPROEX ER 500 MG TAB.ER.24H PO SCH ×2 (09:00)
[2016-10-07] MEDS: IBUPROFEN 600 MG TAB PO PRN ×2 (09:07→18:28)
--- NOTE | 2016-10-07 10:50 | P.CNOR ---
History of Present Illness - HPI Consult date: 10/07/16 Consult reason: low back pain History of present illness: Patient is seen and examined at bedside. She is a 46-year-old female with long- standing chronic history of mid and low back pain. She has been treated for several years with multiple pain management treatments. She had been seen by Dr. Sparks as well as with Dr. Khan. She had an injections with Dr. Tanya Donato several months ago and actually underwent a spinal cord stimulator trial with him a few months ago. The trial did not provide her any relief and she is not pursue permanent placement. Recently she says that she has been having her regular pain at her back and has been continued with pain control. However yesterday she was moving her granddaughter's pack endplate crib which was all closed for her to lift and move and when she was coming to her house she felt significant acute pain at her lower back and toward her right leg. She says that usually her pain is in her back and in her left leg and this new pain in her right leg is debilitating for her. She says the pain is primarily focused at her lower back. She said it comes down a little bit to the right side of her back and toward her right leg especially when she tries to move or lift her leg. She denies any loss of control of her bowels. She says that she her back feels bad anytime she tries to move her right leg but she is able to move her right leg. She says her back feels worse when she tries to walk. She denies any fevers chills. She denies any night sweats. She does not work. Review of Systems As per HPI. Denies fevers chills or night sweats. Denies any chest pain short of breath. Dressing change in bowel function. She says she was having hard time urinating but has been able to urinate normally. Past Medical History Past Medical History: Cancer, Chest Pain / Angina, Musculoskeletal Disorder, Seizure Disorder Additional Past Medical History / Comment(s): LAST SEIZURE OVER 5 YRS AGO. Chronic back pain, hx cervical cancer. migraine headaches History of Any Multi-Drug Resistant Organisms: None Reported Past Surgical History: Section, Hysterectomy Additional Past Surgical History / Comment(s): PAIN CLINIC INJECTIONS Past Anesthesia/Blood Transfusion Reactions: No Reported Reaction Past Psychological History: Anxiety Additional Psychological History / Comment(s): PT LIVES W/ GRANDFATHER IN A SINGLE LEVEL HOME-1 STEP TO ENTER. 1 PET CAT. NO HOME CARE SERVICES. NO MEDICAL EQUIPMENT Smoking Status: Current every day smoker Past Alcohol Use History: Occasional Additional Past Alcohol Use History / Comment(s): STARTED SMOKING AT AGE 15 CURRENTLY SMOKING 1.5 PPD . Past Drug Use History: None Reported - Past Family History Father Additional Family Medical History / Comment(s): BRAIN TUMOR Mother Family Medical History: No Reported History Medications and Allergies Home Medications Medication Instructions Recorded Confirmed Type HYDROcodone/APAP 10-325MG [[place] 1 tab PO QID PRN 01/20/14 10/06/16 History 10-325] Divalproex ER [Depakote ER] 1,500 mg PO QAM 01/09/15 10/06/16 History Pregabalin [Lyrica] 150 mg PO HS 01/09/15 10/06/16 History Ibuprofen 600 mg PO Q6H PRN 02/06/15 10/06/16 History LORazepam [Ativan] 1 mg PO QID PRN 08/24/16 10/06/16 History Ketorolac [Toradol] 10 mg PO Q6HR PRN 10/06/16 10/06/16 History Allergies Allergy/AdvReac Type Severity Reaction Status Date / Time cyclobenzaprine HCl Allergy Swelling Verified 10/06/16 13:23 [From Flexeril] dimenhydrinate Allergy Swelling Verified 10/06/16 13:23 diphenhydramine HCl Allergy Swelling Verified 10/06/16 13:23 [From Benadryl] doxylamine Allergy Swelling Verified 10/06/16 13:23 [From Unisom (doxylamine)] loratadine [From Claritin] Allergy Swelling Verified 10/06/16 13:23 methylprednisolone AdvReac Swelling Verified 10/06/16 16:46 [From Solu-Medrol] Physical Examination Osteopathic Statement: *. No significant issues noted on an osteopathic structural exam other than those noted in the History and Physical/Consult. - L Spine: dermatomal strength & reflexes bilateral Strength: hip flexion: 5/5 (At her back there is no open wounds lacerations or abrasions. She has diffuse somewhat dramatic tenderness to palpation even light palpation diffusely over her back. There is no focal crepitus. At her lower extremity she does have sustained dorsal flexion plantar flexion and EHL intact. She is able to lift her legs up off the bed independently. There is no pain with interelectrode patient of her hips. Her thighs and calves are soft. She has some diffuse tenderness at her right lower remedied without specific radicular pattern. She does have 2 beats of clonus bilaterally at her lower extremity. She does not have other hyperreflexia. She has 2 over 4 deep tendon reflexes at her upper and lower extremities. She has negative Regina' s bilaterally.) Results - Labs Labs: Abnormal Lab Results - Last 24 Hours (Table) 10/06/16 Range/Units 12:50 Total Creatine Kinase 173 H (30-135) U/L H & H 10/06/16 Range/Units 12:50 Hgb 13.7 (11.4-16.0) gm/dL Hct 39.9 (34.0-46.0) % Coagulation 10/06/16 Range/Units 12:50 INR 1.0 (<1.1) Result Diagrams: 10/06/16 12:50 10/06/16 12:50 - Diagnostic results Lumbar AP/lateral x-ray: report reviewed, image reviewed (Report and images of the lumbar spine are reviewed. She has well-maintained alignment and her lumbar spine there is no evidence of fracture or instability.) Assessment and Plan Plan: Acute on chronic low back pain New Right lower extremity symptoms without specific radicular pattern Long history of chronic low back pain with history of multiple conservative treatments and history of unsuccessful neurostimulator trial placement The patient is an acute new low back pain with some new symptoms at the right lower extremity. It is difficult to specifically determine if there is a radicular pattern as the patient is somewhat dramatic in her presentation. She does seem to have her strength intact without focal deficits. She has been seen by Dr. Khan during this admission and I think that his plan to continue with interventional pain management is appropriate. I think it is worthwhile to obtain a new MRI of her lumbar spine which can be done on inpatient or outpatient basis. If she is able to feel more comfortable with conservative treatment with Dr. Khan than it is okay for her to go home from a spine surgery standpoint. If she remains in the hospital we'll obtain a new MRI while she is here. At this point I do not have plans for any acute surgical intervention and I would plan to see how she can just do an outpatient basis before considering any surgery.
--- NOTE | 2016-10-07 13:20 | P.CONS ---
History of Present Illness - Reason for Consult Consult date: 10/07/16 - History of Present Illness This is 46 years old female with a chronic history of low back pain, and headache, patient diagnosed with lumbar degenerative disc disease, she was admitted to [facility] on 10/06/2016 because of severe intractable low back pain started after she fell at home while she was pulling up a play pen, and she dear block severe low back pain with radiation to the right lower extremity associated with numbness and tingling sensations and and she had some right lower extremity weakness, the current pain medication is not helping to control her pain, is currently on [place] 10/325 every 6 hours, and Lyrica 150 mg daily Past Medical History Past Medical History: Cancer, Chest Pain / Angina, Musculoskeletal Disorder, Seizure Disorder Additional Past Medical History / Comment(s): LAST SEIZURE OVER 5 YRS AGO. Chronic back pain, hx cervical cancer. migraine headaches History of Any Multi-Drug Resistant Organisms: None Reported Past Surgical History: Section, Hysterectomy Additional Past Surgical History / Comment(s): PAIN CLINIC INJECTIONS Past Anesthesia/Blood Transfusion Reactions: No Reported Reaction Past Psychological History: Anxiety Additional Psychological History / Comment(s): PT LIVES W/ GRANDFATHER IN A SINGLE LEVEL HOME-1 STEP TO ENTER. 1 PET CAT. NO HOME CARE SERVICES. NO MEDICAL EQUIPMENT Smoking Status: Current every day smoker Past Alcohol Use History: Occasional Additional Past Alcohol Use History / Comment(s): STARTED SMOKING AT AGE 15 CURRENTLY SMOKING 1.5 PPD . Past Drug Use History: None Reported - Past Family History Father Additional Family Medical History / Comment(s): BRAIN TUMOR Mother Family Medical History: No Reported History Medications and Allergies Home Medications Medication Instructions Recorded Confirmed Type HYDROcodone/APAP 10-325MG [[place] 1 tab PO QID PRN 01/20/14 10/06/16 History 10-325] Divalproex ER [Depakote ER] 1,500 mg PO QAM 01/09/15 10/06/16 History Pregabalin [Lyrica] 150 mg PO HS 01/09/15 10/06/16 History Ibuprofen 600 mg PO Q6H PRN 02/06/15 10/06/16 History LORazepam [Ativan] 1 mg PO QID PRN 08/24/16 10/06/16 History Ketorolac [Toradol] 10 mg PO Q6HR PRN 10/06/16 10/06/16 History Allergies Allergy/AdvReac Type Severity Reaction Status Date / Time cyclobenzaprine HCl Allergy Swelling Verified 10/06/16 13:23 [From Flexeril] dimenhydrinate Allergy Swelling Verified 10/06/16 13:23 diphenhydramine HCl Allergy Swelling Verified 10/06/16 13:23 [From Benadryl] doxylamine Allergy Swelling Verified 10/06/16 13:23 [From Unisom (doxylamine)] loratadine [From Claritin] Allergy Swelling Verified 10/06/16 13:23 methylprednisolone AdvReac Swelling Verified 10/06/16 16:46 [From Solu-Medrol] Physical Exam Vitals: Vital Signs Temp Pulse Pulse Resp BP BP Pulse Ox 10/07/16 07:00 97.9 F 67 12 94/54 100 10/07/16 05:00 80/56 10/07/16 03:40 74/43 10/07/16 02:40 80/50 10/07/16 00:00 97.2 F L 70 17 79/54 100 10/06/16 23:00 98.2 F 84 18 101/60 98 10/06/16 17:11 96.0 F L 75 20 105/60 100 10/06/16 16:00 97.5 F L 90 18 102/59 99 10/06/16 15:00 94 18 103/60 98 10/06/16 14:33 89 18 117/55 98 10/06/16 13:23 83 22 123/75 98 10/06/16 12:20 97.0 F L 103 H 24 110/82 100 Intake and Output 10/06/16 10/07/16 10/07/16 22:59 06:59 14:59 Other: Voiding Method Toilet Bedside Commode # Voids 2 1 1 # Bowel Movements 0 Physical Examinations : 1-Constitutional : Cooperative , not in acute distress . 2-HEENT : nech ; supple , no Lymphadenopathy , no Thyromegaly , :eyes , no icterus, no photophobia . ENT : , normal oropharynx , no Thrush 3- Respiratory : Chest clear to auscultations Bilaterally , no wheezing . 4- Cardiovascular : regular rate and rhythem , S1 , S2 , no S3 , no S4. 5- Gastrointestinal: abdomen soft no tenderness , no organomegally . 6- Genitourinary : Defferred . 7-Integumentary : No cellulitis , no ulcers , normal skin turgor , no cyanotic . 8- neurologic : Cranial nerve II to XII intact , no focal neurological deffecit 9-psychatric : alert , oriented X 3 , appropriate affect , intact judgment and insight . 10-Lymphatic : no Lymphadenopathy. 11- musculoskeltal: Lying in bed expressing severe pain in her low back area and right lower extremity Lumber spine moter stegnth lower extremities ,thigh and legs 3/5 Right side , 5/5 Left side deep tendon reflexes : normal Knee Jerk , normal ankle Jerk (left ) decreased on the right side Decreased sensation in the anterior and medial aspect of the right lower extremity positive lumber facet Loading Test multiple trigger points identified in the lumbar paravertebral muscles mainly on the right side Range of motion of the lumbar spine Flexion 30 degrees, extension 10 degrees strait leg raising test , positive at 15 degree on the right side ,and is negative on the left side Fabere test positive RT and negative LT . Sever tenderness over the Sacroiliac joint on the R and negative L sides Results CBC & Chem 7: 10/06/16 12:50 10/06/16 12:50 Labs: Abnormal Lab Results - Last 24 Hours (Table) 10/06/16 Range/Units 12:50 Total Creatine Kinase 173 H (30-135) U/L Assessment and Plan Plan: Assessment and plan= Lumbar radiculopathy, lumbar degenerative disc disease, myofascial pain syndrome lumbar paravertebral muscles She could benefit from lumbar epidural steroid injections under fluoroscopy guidance which will be done today, and also she could benefit from trigger point injections in the lumbar paravertebral muscles Procedure risk and benefits and alternatives discussed with the patient and she agreed with the preceding, the patient had no benefit after the lumbar epidural steroid injection then we should consider doing MRI of the lumbar spine, Time with Patient: Less than 30
[2016-10-07] MEDS ORDERED: IV FLUID CONTINUATION 1,000 ML IV ONE (14:10)
[2016-10-07] MEDS ORDERED: MIDAZOLAM 2 MG/2 ML VIAL ONE (14:54)
[2016-10-07] MEDS ORDERED: fentaNYL (PF) 50 MCG/ML 2 ML AMP ONE (14:54)
[2016-10-07] MEDS ORDERED: DEXAMETHASONE SOD PHOS (MDV) 100 MG/10 ML VIAL ONE (14:54)
[2016-10-07] MEDS ORDERED: BUPIVACAINE (PF) 0.5% 30 ML VIAL ONE (14:54)
[2016-10-07] MEDS ORDERED: IOHEXOL 180 MG/ML 1 ML ML ONE (14:54)
[2016-10-07] MEDS ORDERED: BACLOFEN 10 MG TAB PO PRN (15:10)
--- NOTE | 2016-10-07 15:45 | FL ---
EXAMINATION TYPE: FL guided pain mgmt statistic DATE OF EXAM: 10/07/2016 CLINICAL HISTORY: Low back pain. TECHNIQUE: Fluoroscopy. COMPARISON: None. FINDINGS: Fluoroscopic guidance was provided during pain relief procedure performed by Dr. Khan . A total of 1 seconds of fluoroscopic time was utilized during the procedure and one spot image is acquired. Single Image acquired shows needle localization at L5 level. IMPRESSION: As Above.
--- NOTE | 2016-10-07 18:57 | P.PN ---
Progress Note - Text DATE OF SERVICE: 10/07/2016 PRESENTING COMPLAINT: Back pain INTERVAL HISTORY: this is a 46-year-old female who presented with right-sided back pain.today patient was getting up from the commode, extreme amounts of difficulty moving from the commode chair to the bed. Patient was able to show me directly where the pain was provided a good description of the pain. Patient also informed me Dr. Khan was going to take her for an epidural injection for pain management and control.tolerating her diet, minimally ambulatory, hunched over holding her back, moving her bowels. REVIEW OF SYSTEMS: Done for constitutional ,cardiovascular, GI, pulmonary,musculoskeletal with relevant findings as above. CURRENT MEDICATIONS Lyrica, Ativan, Toradol, Depakote ER, Topamax. PHYSICAL EXAM: VITAL SIGNS: temperature 97.9, pulse 67, respiratory rate 16, blood pressure 94/ 54, oxygen saturation 100% on 2 L. GENERAL APPEARANCE: sitting on the bed, appears to be in pain. EYES: Pupils equal. Conjunctiva normal. NECK: JVD not raised. Mass not palpable. RESPIRATORY: Respiratory effort normal. Lungs clear to auscultation. CARDIOVASCULAR: First and second sounds normal. No edema. ABDOMEN: Soft. Liver and spleen not palpable. No tenderness. No mass palpable. PSYCHIATRY: Alert and oriented x3. Mood and affect normal. MUSCULOSKELETAL: right-sided back pain due at the level of the lumbar and sacral spine pain is actually in the muscular part of her back, extreme tenderness on palpation.right side weaker than the left. INVESTIGATIONS: CBC and BMP unremarkable ASSESSMENT: Lumbar radiculopathy,Degenerative disc disease, myofascial pain syndrome of the lumbar paravertebral musclesIn a patient with chronic back problems Lumbar degenerative disc disease Chronic low back pain and a patient who has had multiple pain procedures. Gastroesophageal reflux disease. Seizure disorder. Chronic nicotine dependence and the patient is a smoker. Anxiety, not otherwise specified PLAN: Dr. Khan from pain service will provide a lumbar epidural injection under fluoroscopy later this afternoon.Dr. Olmstead of orthopedics has no current plans for surgical intervention. Arrange for an MRI either inpatient or outpatient. Continue current medication and treatment plan. We'll follow closely. Discharge tomorrow. [employer] PHOTOGRAPHER statement: Patient was seen and examined by nurse practitioner Vanessa Thomas in all elements of the case discussed with attending is Dr. Mederos
--- NOTE | 2016-10-07 20:28 | P.PCN ---
Date of Procedure: 10/07/16 Preoperative Diagnosis: Postoperative Diagnosis: Procedure(s) Performed: PREOPERATIVE DIAGNOSIS: 1- Lumbar Degenerative Disc Diseases 2-Lumbar radiculopathy. 3-myofascial pain syndrome lumbar area. POSTOPERATIVE DIAGNOSIS: Same as preop diagnosis. PROCEDURE 1. Lumbar epidural steroid injection under fluoroscopic guidance at the L5-S1 level. 2. Lumbar epidurogram. 3-trigger point injections lumbar paravertebral muscles , 4 on the right side and 1 on the left side. ANESTHESIA: Local with 1% lidocaine 3 ml and IV sedation with Versed 4 mg , and fentanyle 100 Mcg EBL: Minimal PROCEDURE INDICATION: The patient with low back pain and radiculitis symptoms unresponsive to conservative treatment. Fluoroscopy was used to optimize visualization of the needle placement and to maximize safety. PROCEDURE DESCRIPTION / TECHNIQUE: The patient was seen and identified in the preoperative area. Risks, benefits , complications including but not limited to infections ,bleeding ,allergic reaction to the medications ,nerve damage and not complete pain releife , and alternatives were discussed with the patient. The patient agreed to proceed with the procedure and signed the consent. IV was started, and vital signs were stable. Patient was taken to the OR and time out was completed. The patient was placed in the prone position on procedure table and a pillow was placed under the abdomen to reduce lumbar lordosis. The lumbosacral area was prepped and draped in the usual sterile fashion.ere closely monitored during the procedure. Conscious sedation was used during the procedure to decrease patients anxiety. Vital signs was monitered during the entire procedure. Using anterior-posterior fluoroscopy, the L5-S1 interlaminar space was identified and the skin over this site was marked and then infiltrated with 1% lidocaine subcutaneously. Subsequently, a 20-gauge Tuohy epidural needle was inserted and advanced toward the epidural space using the ``Loss of resistance technique and guided by AP and lateral fluoroscopy. The correct needle position in the epidural space was verified with the injection of 2 mL of the water soluble contrast dye Omnipaque 180 contrast and observing an excellent epidurogram with the epidural spread of the dye, after negative aspiration for blood and CSF and in the absence of paresthesias. Again after negative aspiration, a 6 ml mixture containing 20 mg of Dexamethasone and 2 ml of preservative free Normal Saline, and 2 ml of preservative free lidocaine 1% solution was injected and a washout of epidurogram was seen. Needle was withdrawn intact, And then the trigger point injections done in a sterile technique , using 25- gauge needle for trigger point was injected in the right side lumbar paravertebral muscles on the left side lumbar paravertebral muscle each one of them injected with Marcaine 0.5% 2 mL injected at each trigger point after negative aspiration and there was no paresthesia during the injection, 25-gauge needle used, patient tolerated the procedure well without any complications, after the skin was cleaned and the Band-Aid applied COMPLICATIONS: None DISPOSITION / PLANS: The patient was placed in a supine position and transferred to the recovery area in a stable condition for observation. There was no evidence of lower extremity motor or sensory deficit after the procedure. Patient was discharged from the recovery room after meeting discharge criteria. Home discharge instructions were given to the patient by the staff. The patient was reexamined prior to discharge. The patient will schedule a follow up in the clinic in 2-4 weeks. Implants: Indications for Procedure: Operative Findings: Description of Procedure:
[2016-10-07] MEDS: PREGABALIN 75 MG CAP PO SCH (20:56)
[2016-10-08] MEDS: IBUPROFEN 600 MG TAB PO PRN (00:23)
[2016-10-08] MEDS: HYDROcodone/APAP 10-325MG 1 EACH TAB PO PRN (07:23)
[2016-10-08] MEDS: TOPIRAMATE 25 MG TAB PO SCH (07:24)
[2016-10-08] MEDS: SODIUM CHLORIDE 0.9% 1,000 ML IV SCH (07:24)
[2016-10-08] MEDS: ENOXAPARIN 40 MG/0.4 ML SYRINGE SQ SCH (07:24)
--- NOTE | 2016-10-08 07:38 | PN ---
DATE OF SERVICE: 10/07/2016 ATTENDING NOTE: This patient was seen and examined by me earlier today. I reviewed the note of my nurse practitioner Mrs. Thomas. I reviewed, discussed, additional finding below. This patient presented with acute right back pain on chronic. Patient had a steroid injection done by Dr. Bailey. Looks much more comfortable, lying in bed today. Actually has been also out of bed. The patient is keen to go home. On exam, LUNGS: Decreased breath sounds. The patient moving her limbs much better. ASSESSMENT: 1. Acute on chronic low back pain with some radiculopathy with clinical improvement, status post steroid injection. 2. Anxiety, not otherwise specified. 3. Chronic obstructive pulmonary disease. 4. Chronic nicotine dependence. PLAN: The patient doing much better. Keen to go home. Medications will be adjusted. She was seen by Dr. Bailey from pain management and Dr. Olmstead who did not feel need for any surgical intervention. Looking at discharge tomorrow.
[2016-10-08 07:42] VITALS: BP 105/58; PULSE 74; RESP 12; TEMP 98.1
--- NOTE | 2016-10-09 13:08 | DS ---
DATE OF ADMISSION: 10/06/2016 DATE OF DISCHARGE: 10/08/2016 FINAL DIAGNOSES: 1. Acute on chronic low back pain, probably from muscle spasm and possible radiculopathy in lumbar area. 2. Gastroesophageal reflux disease. 3. Seizure disorder. 4. Chronic nicotine dependence in a patient who is a smoker. 5. Anxiety, not otherwise specified. CONSULTATION: Dr. Olmstead from orthopedic spine; Dr. Bailey from pain management. HOSPITAL COURSE: This is a patient with long-standing history of chronic back pain presented with worsening back pain and possible radiculopathy, possibly muscle spasms. Patient had a lumbar spine x-ray that was unremarkable. By the time of discharge, patient is actually walking, doing much better. Per Dr. Olmstead nothing further to be done. Dr. Khan did carry out a steroid injection. Patient is very keen to go home. Overall doing better. Care was discussed with the patient and the . ON EXAMINATION: LUNGS: Decreased breath sounds. Patient counseled against smoking and patient actually was walking. DISCHARGE MEDICATIONS: 1. [place] 10 one tablet q.i.d. p.r.n. 2. Depakote ER 1500 mg p.o. daily. 3. Lyrica 150 mg q.h.s. 4. Ativan 1 mg p.o. q.i.d. p.r.n. 5. Zofran 4 mg q.8 p.r.n. 6. Imitrex 50 mg b.i.d. p.r.n. 7. Topamax 25 mg p.o. b.i.d. 8. Toradol 10 mg q.6 p.r.n. 9. Baclofen 5 mg t.i.d. p.r.n. Follow up with Dr. Calloway in 2 days. Follow up with Dr. Jake Olmstead in 3 weeks. Follow up with Dr. Khan in 2 weeks. Counseled against smoking.
== END 2016-10-08 10:42 | disposition home or self-care (01) ==
LOC: EC 12:17 → 4MS4W 16:20
PROVIDERS: ADMIT Hospitalist; ATTEND Hospitalist
DX: G89.29 Other chronic pain (principal); M54.5 Low back pain; M51.16 Intervertebral disc disorders with radiculopathy, lumbar region; M79.1 Myalgia; K21.9 Gastro-esophageal reflux disease without esophagitis; G40.909 Epilepsy, unspecified, not intractable, without status epilepticus; F17.200 Nicotine dependence, unspecified, uncomplicated; F41.9 Anxiety disorder, unspecified; J44.9 Chronic obstructive pulmonary disease, unspecified; G43.909 Migraine, unspecified, not intractable, without status migrainosus; Z79.899 Other long term (current) drug therapy; Z88.8 Allergy status to other drugs, medicaments and biological substances; Z85.41 Personal history of malignant neoplasm of cervix uteri; W19.XXXA Unspecified fall, initial encounter
CPT/HCPCS: 20553; 36415; 62323; 71020; 72110; 80053; 81003; 82550; 82553; 83735; 84484; 85025; 85379; 85610; 85730; 93005; 96374; 96375; 96376; 99285

== ENCOUNTER 2017-05-06 14:50 | Emergency (ER) | payer OTHER ==
[2017-05-06 14:58] VITALS: BP 164/65; PULSE 81; RESP 18; TEMP 97.5
[2017-05-06] MEDS ORDERED: KETOROLAC 30 MG/ML 1 ML VIAL IVP STA (14:59)
[2017-05-06] MEDS ORDERED: DIPH,PERTUS(ACELL)TETVAC-LF 0.5 ML VIAL IM ONE (14:59)
--- NOTE | 2017-05-06 15:50 | CT ---
EXAMINATION TYPE: CT brain cspine wo con DATE OF EXAM: 05/06/2017 COMPARISON: Prior CT brain 06/13/2014 HISTORY: laceration to top of head. CT DLP: 1199.4 mGycm Automated exposure control for dose reduction was used. TECHNIQUE: CT scan of the head and cervical spine are performed without contrast. FINDINGS: There is no acute intracranial hemorrhage, mass effect, or midline shift identified. The ventricles and sulci are within normal limits in size. The globes are intact and the visualized sin uses are remarkable for inflammatory change in the ethmoid air cells. Cervical spine is visualized in its entirety from C1 through upper thoracic levels and demonstrates s atisfactory alignment without evidence of acute fracture or dislocation. Prevertebral soft tissue ap pears within normal limits. The C1-C2 articulation is unremarkable. Degenerative disc changes are pr esent. Loss of lordosis may be due to muscle spasm. Loss of disc height is present at C5-6 and C6-7, there is associated spondylosis. IMPRESSION: 1. There is no acute fracture or dislocation evident in the cervical spine. 2. No acute intracranial hemorrhage, mass effect, or midline shift is seen.
--- NOTE | 2017-05-06 16:11 | ED ---
General Adult HPI - General Chief complaint: Wound/Laceration Stated complaint: head injury Time Seen by Provider: 05/06/17 14:58 Source: patient, EMS, RN notes reviewed, old records reviewed Mode of arrival: EMS Limitations: no limitations - History of Present Illness Initial comments: 47 yo female Patient presents for evaluation of head injury. Patient was cleaning her bathroom, a drill with a drill bit fell onto the patient's head. This caused a scalp laceration and there are mid parietal region. Patient subsequently fell, and believes she may have struck the forehead on the toilet. There was no loss of consciousness. Patient reports no other injury. Denies any chest pain or shortness of breath. Denies abdominal pain. Patient has past medical history of chronic low back pain. She currently takes Lyrica, [place], and Ativan. Denies any vision changes. Denies nausea or vomiting. Denies any focal weakness. - Related Data Home Medications Medication Instructions Recorded Confirmed HYDROcodone/APAP 10-325MG [[place] 1 tab PO QID PRN 01/20/14 05/06/17 10-325] Divalproex ER [Depakote ER] 1,500 mg PO QAM 01/09/15 05/06/17 Pregabalin [Lyrica] 150 mg PO BID 01/09/15 05/06/17 LORazepam [Ativan] 1 mg PO QID PRN 08/24/16 05/06/17 Ketorolac [Toradol] 10 mg PO Q6HR PRN 10/06/16 05/06/17 Previous Rx's Medication Instructions Recorded SUMAtriptan SUCCINATE [Imitrex] 50 mg PO BID PRN #30 tab 08/26/16 Ibuprofen [Motrin] 600 mg PO Q8HR PRN #24 tab 05/06/17 Allergies Allergy/AdvReac Type Severity Reaction Status Date / Time cyclobenzaprine HCl Allergy Swelling Verified 05/06/17 15:12 [From Flexeril] dimenhydrinate Allergy Swelling Verified 05/06/17 15:12 diphenhydramine HCl Allergy Swelling Verified 05/06/17 15:12 [From Benadryl] doxylamine Allergy Swelling Verified 05/06/17 15:12 [From Unisom (doxylamine)] loratadine [From Claritin] Allergy Swelling Verified 05/06/17 15:12 methylprednisolone AdvReac Swelling Verified 05/06/17 15:12 [From Solu-Medrol] Review of Systems ROS Statement: Those systems with pertinent positive or pertinent negative responses have been documented in the HPI. ROS Other: All systems not noted in ROS Statement are negative. Past Medical History Past Medical History: Cancer, Chest Pain / Angina, Musculoskeletal Disorder, Seizure Disorder Additional Past Medical History / Comment(s): LAST SEIZURE OVER 5 YRS AGO. Chronic back pain, hx cervical cancer. migraine headaches History of Any Multi-Drug Resistant Organisms: None Reported Past Surgical History: Section, Hysterectomy Additional Past Surgical History / Comment(s): PAIN CLINIC INJECTIONS Past Anesthesia/Blood Transfusion Reactions: No Reported Reaction Past Psychological History: Anxiety Smoking Status: Current every day smoker Past Alcohol Use History: Occasional Past Drug Use History: None Reported - Past Family History Father Additional Family Medical History / Comment(s): BRAIN TUMOR Mother Family Medical History: No Reported History General Exam Limitations: no limitations General appearance: alert, in no apparent distress, anxious Head exam: Present: normocephalic, other (0.5 cm laceration midline scalp, no palpable bony deformity. No hematoma.) Eye exam: Present: normal appearance, PERRL, EOMI ENT exam: Present: normal exam Neck exam: Present: normal inspection. Absent: tenderness, meningismus Respiratory exam: Present: normal lung sounds bilaterally. Absent: respiratory distress, wheezes Cardiovascular Exam: Present: regular rate, normal rhythm GI/Abdominal exam: Present: soft. Absent: distended, tenderness, guarding Extremities exam: Present: normal inspection, normal capillary refill. Absent: pedal edema Back exam: Present: normal inspection, full ROM. Absent: tenderness Neurological exam: Present: alert, oriented X3, CN II-XII intact. Absent: motor sensory deficit Psychiatric exam: Present: normal affect, normal mood Skin exam: Present: warm, dry. Absent: cyanosis, diaphoretic, erythema Course Vital Signs 05/06/17 14:52 Temperature 97.5 F L Pulse Rate 81 Respiratory 18 Rate Blood Pressure 164/65 O2 Sat by Pulse 100 Oximetry EKG Findings - EKG Comments: EKG Findings:: EKG shows normal sinus rhythm with sinus arrhythmia, rate of 75, NE interval 158, QRS duration 78, QTC 442, no signs of ischemia Medical Decision Making - Medical Decision Making 47-year-old female presents for evaluation of scalp laceration and head injury. Patient had a drill fall onto her head causing a small laceration. There is no surrounding injury, no loss consciousness. Patient states her tetanus is up- to-date. No bleeding from the site. The site is cleansed, given the penetrating injury, no repair performed. Patient is given Toradol for pain. CT the head is obtained, negative for any acute intracranial abnormality, C- spine is negative for fracture or subluxation. Patient is instructed on local wound care. She will follow-up with her primary care physician. Disposition Clinical Impression: Laceration, Scalp laceration Disposition: HOME SELF-CARE Condition: Good Instructions: Laceration (ED), Laceration Without Closure (ED) Prescriptions: Ibuprofen [Motrin] 600 mg PO Q8HR PRN #24 tab PRN Reason: Pain Referrals: Ramón Calloway MD [Primary Care Provider] - 1-2 days Time of Disposition: 16:10
== END 2017-05-06 16:39 | disposition home or self-care (01) ==
LOC: EC 14:50
DX: S01.01XA Laceration without foreign body of scalp, initial encounter (principal); M54.5 Low back pain; G89.29 Other chronic pain; G40.909 Epilepsy, unspecified, not intractable, without status epilepticus; F41.9 Anxiety disorder, unspecified; F17.200 Nicotine dependence, unspecified, uncomplicated; Z85.41 Personal history of malignant neoplasm of cervix uteri; Z53.20 Procedure and treatment not carried out because of patient's decision for unspecified reasons; Z88.8 Allergy status to other drugs, medicaments and biological substances; Z79.899 Other long term (current) drug therapy; W18.09XA Striking against other object with subsequent fall, initial encounter; Y92.091 Bathroom in other non-institutional residence as the place of occurrence of the external cause
CPT/HCPCS: 93005; 72125; 70450; 99285; 96374; J1885

== ENCOUNTER 2024-04-06 08:29 | Emergency (ER) | payer OTHER ==
[2024-04-06 08:36] VITALS: TEMP 97.5
--- NOTE | 2024-04-06 09:01 | ED ---
General Adult HPI - General Chief complaint: Shortness of Breath Stated complaint: SOB Time Seen by Provider: 04/06/24 08:38 Source: patient, RN notes reviewed Mode of arrival: ambulatory Limitations: no limitations - History of Present Illness Initial comments: 53-year-old female with emergency department for evaluation of shortness of breath. Patient reports that she started experiencing a cough around 1 week ago. She notes that over the past 2 days she has had increased shortness of breath. She notes that she has pain in her chest when she coughs. She states that she has tightness in her left arm. Denies any cardiac history. Unknown family history. Denies recent fever, chills. - Related Data Home Medications Medication Instructions Recorded Confirmed Divalproex ER [Depakote ER] 1,500 mg PO DAILY 01/09/15 04/06/24 Fluticasone Propion/Salmeterol 1 puff INHALATION RT-BID 04/06/24 04/06/24 [Advair 250-50 Diskus] oxyBUTYnin chloride [oxyBUTYnin 5 mg PO DAILY 04/06/24 04/06/24 chloride ER] Previous Rx's Medication Instructions Recorded Ipratropium-Albuterol Nebulize 3 ml INHALATION QID #25 each 04/06/24 [Duoneb 0.5 mg-3 mg/3 ml Soln] predniSONE 50 mg PO DAILY #5 tab 04/06/24 Allergies Allergy/AdvReac Type Severity Reaction Status Date / Time cyclobenzaprine HCl Allergy Swelling Verified 04/06/24 11:45 [From Flexeril] dimenhydrinate Allergy Swelling Verified 04/06/24 11:45 diphenhydramine HCl Allergy Swelling Verified 04/06/24 11:45 [From Benadryl] doxylamine Allergy Swelling Verified 04/06/24 11:45 [From Unisom (doxylamine)] loratadine [From Claritin] Allergy Swelling Verified 04/06/24 11:45 methylprednisolone AdvReac Swelling Verified 04/06/24 11:45 [From Solu-Medrol] Review of Systems ROS Statement: Those systems with pertinent positive or pertinent negative responses have been documented in the HPI. ROS Other: All systems not noted in ROS Statement are negative. Past Medical History Past Medical History: Cancer, Chest Pain / Angina, Musculoskeletal Disorder, Seizure Disorder Additional Past Medical History / Comment(s): LAST SEIZURE OVER 5 YRS AGO. Chronic back pain, hx cervical cancer. migraine headaches History of Any Multi-Drug Resistant Organisms: None Reported Past Surgical History: Section, Hysterectomy Additional Past Surgical History / Comment(s): PAIN CLINIC INJECTIONS Past Anesthesia/Blood Transfusion Reactions: No Reported Reaction Past Psychological History: Anxiety Smoking Status: Former smoker, Vaper Past Alcohol Use History: Occasional Past Drug Use History: Marijuana - Past Family History Father Additional Family Medical History / Comment(s): BRAIN TUMOR Mother Family Medical History: No Reported History General Exam Limitations: no limitations Course Vital Signs 04/06/24 04/06/24 08:30 11:38 Temperature 97.5 F L Pulse Rate 80 84 Respiratory 18 Rate Blood Pressure 122/82 O2 Sat by Pulse 100 Oximetry Medical Decision Making - Medical Decision Making Was pt. sent in by a medical professional or institution ([facility], [facility], urgent care, hospital, or correction...) When possible be specific @ -[No] Did you speak to anyone other than the patient for history (EMS, parent, family, police, friend...)? What history was obtained from this source @ -[No] Did you review nursing and triage notes (agree or disagree)? Why? @ -[I reviewed and agree with nursing and triage notes] Were old charts reviewed (outside hosp., previous admission, EMS record, old EKG, old radiological studies, urgent care reports/EKG's, correction records)? Report findings @ -[No old charts were reviewed] Differential Diagnosis (chest pain, altered mental status, abdominal pain women, abdominal pain men, vaginal bleeding, weakness, fever, dyspnea, syncope, headache, dizziness, GI bleed, back pain, seizure, CVA, palpatations, mental he alth, musculoskeletal)? @ -[not applicable] EKG interpreted by me (3pts min.). @ -[As above] X-rays interpreted by me (1pt min.). @ -[None done] CT interpreted by me (1pt min.). @ -[None done] U/S interpreted by me (1pt. min.). @ -[None done] What testing was considered but not performed or refused? (CT, X-rays, U/S, labs)? Why? @ -[None] What meds were considered but not given or refused? Why? @ -[None] Did you discuss the management of the patient with other professionals (professionals i.e. , PA, [facility], lab, RT, psych nurse, oncology social work, sample maker, teacher, patient safety officer, residential case manager)? Give summary @ -[No] Was smoking cessation discussed for >3mins.? @ -[No] Was critical care preformed (if so, how long)? @ -[No] Were there social determinants of health that impacted care today? How? (Homelessness, low income, unemployed, alcoholism, drug addiction, transportation, low edu. Level, literacy, decrease access to med. care, half-way, rehab)? @ -[No] Was there de-escalation of care discussed even if they declined (Discuss DNR or withdrawal of care, Hospice)? DNR status @ -[No] What co-morbidities impacted this encounter? (DM, HTN, Smoking, COPD, CAD, Cancer, CVA, ARF, Chemo, Hep., AIDS, mental health diagnosis, sleep apnea, morbid obesity)? @ -[None] Was patient admitted / discharged? Hospital course, mention meds given and route, prescriptions, significant lab abnormalities, going to OR and other pertinent info. @ -[hospital course] Undiagnosed new problem with uncertain prognosis? @ -[No] Drug Therapy requiring intensive monitoring for toxicity (Heparin, Nitro, Insulin, Cardizem)? @ -[No] Were any procedures done? @ -[No] Diagnosis/symptom? @ -[default] Acute, or Chronic, or Acute on Chronic? @ -[default] Uncomplicated (without systemic symptoms) or Complicated (systemic symptoms)? @ -[default] Side effects of treatment? @ -[No] Exacerbation, Progression, or Severe Exacerbation? @ -[No] Poses a threat to life or bodily function? How? (Chest pain, [place], [place], pneumonia, PE, COPD, DKA, ARF, appy, cholecystitis, CVA, Diverticulitis, Homicidal, Suicid al, threat to staff... and all critical care pts) @ -[No] - Lab Data Result diagrams: 04/06/24 08:57 04/06/24 08:57 Lab Results 04/06/24 04/06/24 04/06/24 Range/Units 08:53 08:57 08:57 WBC 10.9 H (3.8-10.6) k/uL RBC 4.40 (3.80-5.40) m/uL Hgb 13.5 (11.4-16.0) gm/dL Hct 41.8 (34.0-46.0) % MCV 95.0 (80.0-100.0) fL MCH 30.6 (25.0-35.0) pg MCHC 32.2 (31.0-37.0) g/dL RDW 12.2 (11.5-15.5) % Plt Count 350 (150-450) k/uL MPV 7.1 Neutrophils % 71 % Lymphocytes % 18 % Monocytes % 6 % Eosinophils % 2 % Basophils % 1 % Neutrophils # 7.7 (1.3-7.7) k/uL Lymphocytes # 2.0 (1.0-4.8) k/uL Monocytes # 0.7 (0-1.0) k/uL Eosinophils # 0.3 (0-0.7) k/uL Basophils # 0.1 (0-0.2) k/uL PT 10.9 (10.0-12.5) sec INR 1.0 (<1.2) APTT 31.6 H (22.0-30.0) sec D-Dimer (<0.60) mg/L FEU Sodium (137-145) mmol/L Potassium (3.5-5.1) mmol/L Chloride (98-107) mmol/L Carbon Dioxide (22-30) mmol/L Anion Gap mmol/L BUN (7-17) mg/dL Creatinine (0.52-1.04) mg/dL Est GFR (CKD-EPI)AfAm (>60 ml/min/1.73 sqM) Est GFR (CKD-EPI)NonAf (>60 ml/min/1.73 sqM) Glucose (74-99) mg/dL Plasma Lactic Acid Jerald (0.7-2.0) mmol/L Calcium (8.4-10.2) mg/dL Total Bilirubin (0.2-1.3) mg/dL AST (14-36) U/L ALT (4-34) U/L Alkaline Phosphatase (38-126) U/L Troponin I (0.000-0.034) ng/mL Total Protein (6.3-8.2) g/dL Albumin (3.5-5.0) g/dL Influenza Type A (PCR) Not Detected (Not Detectd) Influenza Type B (PCR) Not Detected (Not Detectd) RSV (PCR) Not Detected (Not Detectd) SARS-CoV-2 (PCR) Not Detected (Not Detectd) 04/06/24 04/06/24 04/06/24 Range/Units 08:57 08:57 08:57 WBC (3.8-10.6) k/uL RBC (3.80-5.40) m/uL Hgb (11.4-16.0) gm/dL Hct (34.0-46.0) % MCV (80.0-100.0) fL MCH (25.0-35.0) pg MCHC (31.0-37.0) g/dL RDW (11.5-15.5) % Plt Count (150-450) k/uL MPV Neutrophils % % Lymphocytes % % Monocytes % % Eosinophils % % Basophils % % Neutrophils # (1.3-7.7) k/uL Lymphocytes # (1.0-4.8) k/uL Monocytes # (0-1.0) k/uL Eosinophils # (0-0.7) k/uL Basophils # (0-0.2) k/uL PT (10.0-12.5) sec INR (<1.2) APTT (22.0-30.0) sec D-Dimer (<0.60) mg/L FEU Sodium 141 (137-145) mmol/L Potassium 4.5 (3.5-5.1) mmol/L Chloride 106 (98-107) mmol/L Carbon Dioxide 29 (22-30) mmol/L Anion Gap 6 mmol/L BUN 15 (7-17) mg/dL Creatinine 0.81 (0.52-1.04) mg/dL Est GFR (CKD-EPI)AfAm >90 (>60 ml/min/1.73 sqM) Est GFR (CKD-EPI)NonAf 85 (>60 ml/min/1.73 sqM) Glucose 91 (74-99) mg/dL Plasma Lactic Acid Jerald 1.2 (0.7-2.0) mmol/L Calcium 9.2 (8.4-10.2) mg/dL Total Bilirubin 0.3 (0.2-1.3) mg/dL AST 23 (14-36) U/L ALT 18 (4-34) U/L Alkaline Phosphatase 85 (38-126) U/L Troponin I <0.012 (0.000-0.034) ng/mL Total Protein 6.2 L (6.3-8.2) g/dL Albumin 3.8 (3.5-5.0) g/dL Influenza Type A (PCR) (Not Detectd) Influenza Type B (PCR) (Not Detectd) RSV (PCR) (Not Detectd) SARS-CoV-2 (PCR) (Not Detectd) 04/06/24 04/06/24 Range/Units 08:57 12:03 WBC (3.8-10.6) k/uL RBC (3.80-5.40) m/uL Hgb (11.4-16.0) gm/dL Hct (34.0-46.0) % MCV (80.0-100.0) fL MCH (25.0-35.0) pg MCHC (31.0-37.0) g/dL RDW (11.5-15.5) % Plt Count (150-450) k/uL MPV Neutrophils % % Lymphocytes % % Monocytes % % Eosinophils % % Basophils % % Neutrophils # (1.3-7.7) k/uL Lymphocytes # (1.0-4.8) k/uL Monocytes # (0-1.0) k/uL Eosinophils # (0-0.7) k/uL Basophils # (0-0.2) k/uL PT (10.0-12.5) sec INR (<1.2) APTT (22.0-30.0) sec D-Dimer 0.27 (<0.60) mg/L FEU Sodium (137-145) mmol/L Potassium (3.5-5.1) mmol/L Chloride (98-107) mmol/L Carbon Dioxide (22-30) mmol/L Anion Gap mmol/L BUN (7-17) mg/dL Creatinine (0.52-1.04) mg/dL Est GFR (CKD-EPI)AfAm (>60 ml/min/1.73 sqM) Est GFR (CKD-EPI)NonAf (>60 ml/min/1.73 sqM) Glucose (74-99) mg/dL Plasma Lactic Acid Jerald (0.7-2.0) mmol/L Calcium (8.4-10.2) mg/dL Total Bilirubin (0.2-1.3) mg/dL AST (14-36) U/L ALT (4-34) U/L Alkaline Phosphatase (38-126) U/L Troponin I <0.012 (0.000-0.034) ng/mL Total Protein (6.3-8.2) g/dL Albumin (3.5-5.0) g/dL Influenza Type A (PCR) (Not Detectd) Influenza Type B (PCR) (Not Detectd) RSV (PCR) (Not Detectd) SARS-CoV-2 (PCR) (Not Detectd) Disposition Clinical Impression: Bronchitis Disposition: HOME SELF-CARE Condition: Stable Instructions (If sedation given, give patient instructions): Acute Bronchitis (ED) Additional Instructions: Please follow up with your primary care provider. Return to the emergency department for new or worsening symptoms. Is patient prescribed a controlled substance at d/c from ED?: No Referrals: [facility] [NON-STAFF] - 1-2 days [facility] [NON-STAFF] - 1-2 days None,Stated [Primary Care Provider] - 1-2 days Forms: [facility] PCPs
[2024-04-06 09:06] LABS: Basophils # (A) 0.1 k/uL (0-0.2); Basophils % (A) 1 %; Eosinophils # (A) 0.3 k/uL (0-0.7); Eosinophils % (A) 2 %; HCT 41.8 % (34.0-46.0); HGB 13.5 gm/dL (11.4-16.0); Lymphocytes % (A) 18 %; MCH 30.6 pg (25.0-35.0); MCHC 32.2 g/dL (31.0-37.0); Mean Platelet Volume 7.1; Monocytes # (A) 0.7 k/uL (0-1.0); Monocytes % (A) 6 %; Neutrophils # (A) 7.7 k/uL (1.3-7.7); Neutrophils % (A) 71 %; Platelet Count 350 k/uL (150-450); RDW 12.2 % (11.5-15.5); WBC 10.9 k/uL (3.8-10.6)
--- NOTE | 2024-04-06 09:09 | XR ---
EXAMINATION TYPE: XR chest 2V DATE OF EXAM: 04/06/2024 9:04 AM COMPARISON: None. CLINICAL INDICATION: Female, 53 years old with history of difficulty breathing, TECHNIQUE: XR chest 2V view(s) obtained. FINDINGS: The heart size is normal. The pulmonary vasculature is normal. The lungs are clear. IMPRESSION: 1. No acute pulmonary process. [facility], , 04/06/2024 9:06 AM
[2024-04-06 09:19] LABS: ALT 18 U/L (4-34); AST 23 U/L (14-36); African American GFR (CKD) >90 (>60 ml/min/1.73 sqM); Albumin 3.8 g/dL (3.5-5.0); Alkaline Phosphatase 85 U/L (38-126); Anion Gap 6 mmol/L; Blood Urea Nitrogen 15 mg/dL (7-17); Calcium 9.2 mg/dL (8.4-10.2); Carbon Dioxide 29 mmol/L (22-30); Chloride 106 mmol/L (98-107); Glucose 91 mg/dL (74-99); Non-African American GFR(CKD) 85 (>60 ml/min/1.73 sqM); Potassium 4.5 mmol/L (3.5-5.1); Sodium 141 mmol/L (137-145); Total Bilirubin 0.3 mg/dL (0.2-1.3); Total Protein 6.2 g/dL (6.3-8.2)
[2024-04-06 09:28] LABS: Partial Thromboplastin Time 31.6 sec (22.0-30.0); Prothrombin Time 10.9 sec (10.0-12.5)
[2024-04-06] MEDS: ASPIRIN 81 MG PO STA (10:21)
[2024-04-06] MEDS: IPRATROPIUM-ALBUTEROL 3 ML NEB INHALATION STA (11:38)
[2024-04-06 13:01] VITALS: BP 124/84; PULSE 82; RESP 20
== END 2024-04-06 13:01 | disposition home or self-care (01) ==
LOC: EC 08:29
DX: J40 Bronchitis, not specified as acute or chronic (principal); F17.290 Nicotine dependence, other tobacco product, uncomplicated; Z88.8 Allergy status to other drugs, medicaments and biological substances
CPT/HCPCS: 36415; 71046; 80053; 83605; 84484; 85025; 85379; 85610; 85730; 87636; 93005; 94640; 99285